=== PATIENT | male | born 2000 | race Asian ===

== ENCOUNTER 2019-09-21 15:47 | Outpatient (CLI) | payer OTHER ==
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
== END 2019-09-21 15:48 | disposition home or self-care (01) ==
LOC: SCSRAD 15:47
PROVIDERS: ATTEND Student in an Organized Health Care Education/Training Program
DX: M54.5 Low back pain (principal)
CPT/HCPCS: 36415; 72100; 80053; 80061; 84439; 84443